=== PATIENT | female | born 1960 | race Caucasian/White ===

== ENCOUNTER → 2019-04-28 | Outpatient (CLI) | payer OTHER ==
--- NOTE | 2019-04-28 16:58 | RAD ---
Examination: HAND BILAT 3V, WRIST BILAT 3V History: Rheumatoid arthritis Comparison/Correlation: None Findings: Three-view exam of the right wrist and 3 view x-ray examination of the right hand were performed. Osteopenia is evident especially in the periarticular distribution. Advanced radiocarpal joint narrowing is present. Advanced distal radioulnar joint degenerative narrowing with remodeling and spurring is present. Deformity of the ulnar styloid is compatible. No acute fracture. No suspicious bony destructive findings. Mild first carpometacarpal joint degenerative changes are present. Significant degenerative narrowing and sclerosis of the second metacarpophalangeal joint is evident. Narrowing of the third metacarpophalangeal joint are lesser extent. Impression: Osteopenia is noted particularly in periarticular distribution. Significant radiocarpal joint narrowing and distal radial ulnar joint degenerative narrowing with remodeling. Narrowing of the second metacarpophalangeal joint also is present. Electronically signed by: Rainer Zamudio MD (04/28/2019 4:55 PM) [facility]
== END | disposition home or self-care (01) ==
LOC: DXRAD 15:53
PROVIDERS: ATTEND Nurse Practitioner Family
DX: M85.88 Other specified disorders of bone density and structure, other site (principal); M25.832 Other specified joint disorders, left wrist; M25.831 Other specified joint disorders, right wrist; M05.9 Rheumatoid arthritis with rheumatoid factor, unspecified
CPT/HCPCS: 73110; 73130

== ENCOUNTER → 2019-06-17 | Outpatient (CLI) | payer OTHER ==
[2019-06-17 16:14] LABS: ALBUMIN/GLOBULIN RATIO 0.7 (1.0-1.7); CALCIUM 8.5 mg/dL (8.5-10.1); CREATININE 1.5 mg/dL (0.6-1.0); GFR 35.3; POTASSIUM 4.6 mmol/L (3.5-5.1); TOTAL BILIRUBIN 0.2 mg/dL (0.2-1.0); TOTAL PROTEIN 7.4 g/dL (6.4-8.2)
== END | disposition home or self-care (01) ==
LOC: LAB 15:32
PROVIDERS: ATTEND General Practice
DX: I00 Rheumatic fever without heart involvement (principal)
CPT/HCPCS: 36415; 80053

== ENCOUNTER → 2019-06-27 | Outpatient (CLI) | payer OTHER ==
[2019-06-27 15:20] LABS: ALBUMIN/GLOBULIN RATIO 0.6 (1.0-1.7); CALCIUM 8.4 mg/dL (8.5-10.1); CREATININE 0.7 mg/dL (0.6-1.0); GFR 85.1; TOTAL BILIRUBIN 0.4 mg/dL (0.2-1.0); TOTAL PROTEIN 7.8 g/dL (6.4-8.2)
== END | disposition home or self-care (01) ==
LOC: LAB 14:33
PROVIDERS: ATTEND General Practice
DX: I00 Rheumatic fever without heart involvement (principal)
CPT/HCPCS: 36415; 80053

== ENCOUNTER → 2020-03-22 | Outpatient (CLI) | payer OTHER ==
[2020-03-22 18:17] LABS: BASO # 0.1 x10^3/uL (0.0-0.2); BASO % 1 % (0-3); EOS # 0.4 x10^3/uL (0.0-0.7); EOS % 5 % (0-3); HEMATOCRIT 36.1 % (36.0-47.0); HEMOGLOBIN 12.1 g/dL (12.0-15.5); LYMPH # 2.3 x10^3/uL (1.0-4.8); LYMPH % 32 % (24-48); MEAN CORPUSCULAR HEMOGLOBIN 29 pg (25-35); MEAN CORPUSCULAR HGB CONC 33 g/dL (31-37); MEAN CORPUSCULAR VOLUME 87 fL (79-100); MONO # 0.8 x10^3/uL (0.0-1.1); MONO % 11 % (0-9); NEUT # 3.6 x10^3uL (1.8-7.7); NEUT % 50 % (31-73); PLATELET COUNT 521 x10^3/uL (140-400); RED BLOOD COUNT 4.13 x10^6/uL (3.50-5.40); RED CELL DISTRIBUTION WIDTH 13.3 % (11.5-14.5); WHITE BLOOD COUNT 7.1 x10^3/uL (4.0-11.0)
[2020-03-22 18:26] LABS: ALBUMIN 2.9 g/dL (3.4-5.0); ALBUMIN/GLOBULIN RATIO 0.5 (1.0-1.7); C REACTIVE PROTEIN 31.3 mg/L (0-3.3); CALCIUM 9.2 mg/dL (8.5-10.1); CREATININE 0.8 mg/dL (0.6-1.0); GFR 72.7; POTASSIUM 3.7 mmol/L (3.5-5.1); TOTAL BILIRUBIN 0.2 mg/dL (0.2-1.0); TOTAL PROTEIN 8.5 g/dL (6.4-8.2)
== END | disposition home or self-care (01) ==
LOC: LAB 17:29
PROVIDERS: ATTEND Internal Medicine
DX: M05.741 Rheumatoid arthritis with rheumatoid factor of right hand without organ or systems involvement (principal); M05.742 Rheumatoid arthritis with rheumatoid factor of left hand without organ or systems involvement; Z79.899 Other long term (current) drug therapy
CPT/HCPCS: 36415; 80053; 85025; 86140

== ENCOUNTER → 2020-04-11 | Outpatient (CLI) | payer OTHER | END | disposition home or self-care (01) | LOC: LAB 08:51 | PROVIDERS: ATTEND Podiatrist Radiology | DX: T84.84XA Pain due to internal orthopedic prosthetic devices, implants and grafts, initial encounter (principal); Y83.8 Other surgical procedures as the cause of abnormal reaction of the patient, or of later complication, without mention of misadventure at the time of the procedure | CPT/HCPCS: 36415 ==

== ENCOUNTER → 2020-04-25 | Outpatient (CLI) | payer OTHER | LOC: LAB 14:58 | PROVIDERS: ATTEND Dentist General Practice | DX: Z96.7 Presence of other bone and tendon implants (principal); Z92.29 Personal history of other drug therapy | CPT/HCPCS: 36415 ==

== ENCOUNTER → 2021-07-23 | Outpatient (CLI) | payer OTHER ==
--- NOTE | 2021-07-24 10:42 | RAD ---
Screening bilateral mammogram with tunnel symphysis dated 07/23/2021. INDICATION: 61 years of age asymptomatic female patient presents for screening mammography. Screening TECHNIQUE: Full field craniocaudal and mediolateral oblique images of both breasts were obtained usi ng digital technique with tomosynthesis and also analyzed with computer-aided detection software. . COMPARISON: No priors available .. BREAST COMPOSITION: Category B: There are scattered fibroglandular densities. FINDINGS: No suspicious mass or clustered microcalcification. No architectural distortion. IMPRESSION: No mammographic evidence of malignancy. RECOMMENDATION: Annual screening mammography is recommended, unless clinically indicated sooner based on symptoms or change in physical exam. BIRADS 1: NEGATIVE This study was interpreted with the benefit of Computerized Aided Detection (CAD). Recommend routine screening in one year. Patient information is entered into the reminder system with a target due date for the next screening mammogram. Mammography is the most sensitive method for finding small breast cancers, but it does not detect the m all and is not a substitute for careful clinical examination. A negative mammogram does not negate a clinically suspicious finding and should not result in delay in biopsying a clinically suspicious a bnormality. "Our facility is accredited by the [employer] Mammography Program." Electronically signed by: Spencer Singh MD (07/24/2021 10:40 AM) [id number]
== END ==
LOC: MAMMO 14:55
PROVIDERS: ATTEND Family Medicine
DX: Z12.31 Encounter for screening mammogram for malignant neoplasm of breast (principal)
CPT/HCPCS: 77063; 77067